=== PATIENT | female | born 1960 | race Caucasian/White ===

== ENCOUNTER 2020-03-07 02:41 | Emergency (ER) | payer BC ==
[~2020-03-07] VITALS: Ht 167.6 cm; Wt 81.7 kg
--- OUTSIDE RECORDS SUMMARY | ~2020-03-07 | XMS ---
Demographics + + + | Address | [address] | | | [place] [address] | + + + | Preferred Language | Unknown | + + + | Marital Status | Unknown | + + + | Judaism Affiliation | Unknown | + + + | Race | Unknown | + + + | Ethnic Group | Unknown | + + + Author + + + | Author | [facility] | + + + | Organization | [facility] | + + + | Address | [address] | | | [place] [address] | + + + | Phone | | + + + Care Team Providers + + + + | Care Principal Gifts Officer Name | Role | Phone | + + + + Unavailable | Unavailable | + + + + PROBLEMS +---------+ + + +--------+ + + | Type | Condition | ICD9-CM | ZOR67-EV | Onset | Condition | SNOMED | | | | Code | Code | Dates | Status | Code | +---------+ + + +--------+ + + | Problem | Herpes | 054.9 | | | Active | 50866567 | | | infection | | | | | | | | NOS | | | | | | +---------+ + + +--------+ + + | Problem | Shingles | 053.9 | | | Active | 9857522 | +---------+ + + +--------+ + + | Problem | Insomnia | 780.52 | | | Active | 435636180 | +---------+ + + +--------+ + + | Problem | Hypertensi | 401.9 | | | Active | 13844592 | | | on | | | | | | +---------+ + + +--------+ + + ALLERGIES Unknown Allergies SOCIAL HISTORY No smoking Hx information available PLAN OF CARE VITAL SIGNS MEDICATIONS Unknown Medications RESULTS No Results PROCEDURES No Known procedures IMMUNIZATIONS No Known Immunizations"
--- OUTSIDE RECORDS SUMMARY | ~2020-03-07 | XMS ---
Demographics + + + | Address | [address] | | | [place] [address] | + + + | Preferred Language | Unknown | + + + | Marital Status | Unknown | + + + | Roman Catholic Affiliation | Unknown | + + + | Race | Unknown | + + + | Ethnic Group | Unknown | + + + Author + + + | Author | [facility] | + + + | Organization | [facility] | + + + | Address | [address] | | | [place] [address] | + + + | Phone | | + + + Care Team Providers + + + + | Care Tower Truck Driver Name | Role | Phone | + + + + Unavailable | Unavailable | + + + + PROBLEMS +---------+ + + +--------+ + + | Type | Condition | ICD9-CM | [id number] | Onset | Condition | SNOMED | | | | Code | Code | Dates | Status | Code | +---------+ + + +--------+ + + | Problem | Herpes | 054.9 | | | Active | [id number] | | | infection | | | | | | | | NOS | | | | | | +---------+ + + +--------+ + + | Problem | Shingles | 053.9 | | | Active | 6955045 | +---------+ + + +--------+ + + | Problem | Insomnia | 780.52 | | | Active | 083990537 | +---------+ + + +--------+ + + | Problem | Hypertensi | 401.9 | | | Active | 62457267 | | | on | | | | | | +---------+ + + +--------+ + + ALLERGIES + + + + +--------+ | Substance | Reaction | Event Type | Date | Status | + + + + +--------+ | Penicillin | Unknown | Drug Allergy | May, | Active | + + + + +--------+ | PCN | Unknown | Non Drug | May, | Active | | | | Allergy | | | + + + + +--------+ SOCIAL HISTORY No smoking Hx information available PLAN OF CARE + +---------+ | Activity | Details | + +---------+ +---+ | | +---+ + + + | Follow Up | as scheduled with PCP Reason:null | + + + | Pending Test | Strep Gp A Rapid (IH) | + + + VITAL SIGNS + + + + | Height | 66 in | 2017-05-20 | + + + + | Weight | 180.6 lbs | 2017-05-20 | + + + + | BMI | 29.15 kg/m2 | 2017-05-20 | + + + + | Temperature | 98.8 degrees Fahrenheit | 2017-05-20 | + + + + | Heart Rate | 89 /min | 2017-05-20 | + + + + | Blood pressure systolic | 128 mm Hg | 2017-05-20 | + + + + | Blood pressure diastolic | 86 mm Hg | 2017-05-20 | + + + + MEDICATIONS + + + + + + + +--------+ | Medicati | Instruct | Dosage | Frequenc | Start | End Date | Duration | Status | | on | ions | | y | Date | | | | + + + + + + + +--------+ | Lunesta | Orally | 1 tablet | 24h | | | 90 | Active | | 3 MG | Once a | | | | | | | | | day | immediat | | | | | | | | | coco | | | | | | | | | before | | | | | | | | | bedtime | | | | | | + + + + + + + +--------+ | Acyclovi | Orally | 1 tablet | 12h | | | 10 | Active | | r 400 MG | BID | | | | | | | + + + + + + + +--------+ | Pseudoep | Orally | 1-2 | 6h | May, | | 15 | Active | | hedrine | every 6 | tablet | | 2016 | | day(s) | | | HCl 30 | hrs | as | | | | | | | mg | | needed | | | | | | + + + + + + + +--------+ | Imiprami | | | | | | | Active | | ne HCl | | | | | | | | | 10 MG | | | | | | | | + + + + + + + +--------+ | Ofloxaci | Ophthalm | 1 drop | 6h | May, | 16 Reinaldo, | 7 days | Active | | n 0.3 % | ic Four | into | | 2016 | 2016 | | | | | times a | affected | | | | | | | | day | eye | | | | | | + + + + + + + +--------+ | Cozaar | Orally | 1 tablet | 24h | | | 90 | Active | | 50 MG | Once a | | | | | | | | | day | | | | | | | + + + + + + + +--------+ RESULTS No Results PROCEDURES + + + + + | Procedure | Date Ordered | Related Diagnosis | Body Site | + + + + + | STREP A ASSAY | May 20, 2017 | | | | W/OPTIC | | | | + + + + + | Est Level III | May 20, 2017 | | | | Intermediate | | | | + + + + + IMMUNIZATIONS No Known Immunizations"
[~2020-03-07 02:41] MED LIST: ATENOLOL25 MG PO; BENADRYL A12.5 MG/5 PO; LOSARTAN POTASS50 MG; LUNESTA3 MG
--- OUTSIDE RECORDS SUMMARY | 2020-03-07 02:44 | XMS ---
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 [facility] VISIT COUNT (12 MO.) 1 STELLA Johnson TOTAL 1 NOTE: Visits indicate total known visits. ED/UCC VISIT TRACKING (12 MO.) 03/07/2020 02:42 STELLA Newman [place] TYPE: Emergency COMPLAINT: - CHEST PAIN,SOB INPATIENT VISIT TRACKING (12 MO.) No inpatient visits to display in this time frame [email or web address]
[2020-03-07] MEDS ORDERED: LOSARTAN POTASS25 MG PO (02:55)
[2020-03-07] MEDS ORDERED: ESZOPICLONE3 MG PO (02:55)
[2020-03-07] MEDS ORDERED: LEVOTHYROXINE50 MCG PO (02:57)
[2020-03-07] MEDS ORDERED: NORCO 5-325 TA1 EACH PO (04:18)
--- NOTE | 2020-03-07 20:45 | EKG ---
[facility] [address] [facility] [place] [address] Signed Normal sinus rhythm Possible Left atrial enlargement Borderline ECG No previous ECGs available Confirmed by MICHELLE KENNEY MD ([id number]) on 03/07/2020 8:45:06 PM Electronically Signed By: MICHELLE KENNEY MD 03/07/20 2045 PATIENT NAME: INÉS MAC Electrocardiogram DATE OF : 56 PHYSICIAN: MICHELLE KENNEY MD REPORT #: [id number] REPORT IS CONFIDENTIAL AND NOT TO BE RELEASED WITHOUT AUTHORIZATION
== END 2020-03-07 04:30 | disposition home or self-care (01) ==
LOC: ED 02:41
DX: R07.89 Other chest pain (principal); E03.9 Hypothyroidism, unspecified; F41.9 Anxiety disorder, unspecified; J45.909 Unspecified asthma, uncomplicated; Z87.891 Personal history of nicotine dependence; Z88.0 Allergy status to penicillin; Z79.899 Other long term (current) drug therapy
CPT/HCPCS: 71045; 80053; 83690; 83735; 84484; 85025; 85379; 93005; 93010; 99284-25

== ENCOUNTER 2023-09-06 08:05 | Day surgery (SDC) | payer OTHER ==
[~2023-09-06] VITALS: Ht 167.6 cm; Wt 82.7 kg
[~2023-09-06 08:05] MED LIST changes: +ACYCLOVIR400 MG PO; +ESZOPICLONE3 MG PO; +FLOVENT HFA10.6 GM INH; +LEVOTHYROXINE50 MCG PO; +LOSARTAN POTASS25 MG PO; +NORCO 5-325 TA1 EACH PO
[2023-09-06 08:32] VITALS: BP 136/73
--- NOTE | 2023-09-06 09:53 | NUR ---
09/06/23 0953 Gela Parra 0923- PT ARRIVES TO PACU, LEFT LATERAL POSITION. O2 IN PLACE AT 2L PER NC, LR INFUSING TO RH IV. PT REACTIVE TO STIMULIS, DENIES PAIN AND NAUSEA, KEEPS EYES CLOSED AND BACK TO RESTING. ABD ROUND, FIRM, ENCOURAGED TO PASS GAS. 0936- PT WAKES SELF, IS ASKING QUESTIONS. PLACED ON ROOM AIR. PT THEN BACK TO RESTING, PASSING GAS. WILL CONTINUE TO MONITOR. 0945- 1 LITER LR COMPLETE, NO FURTHER AT THIS TIME. PT CONTINUES TO REST INTERMITTENTLY. HASN'T CHANGED POSITIONS BUT OPENS EYES SOME TO ASK QUESTIONS.
[2023-09-06 10:42] VITALS: BP 107/67
--- NOTE | 2023-09-07 10:16 | OR ---
[facility] [address] [place], [place] [address] Signed DATE OF OPERATION: 09/06/2023 SURGEON: Ambar Rainey MD PREOPERATIVE DIAGNOSIS: Colon screening. POSTOPERATIVE DIAGNOSES: 1. Sigmoid diverticulosis. 2. Internal hemorrhoids. PROCEDURE: Total colonoscopy to cecum. ANESTHESIA: Intravenous sedation; fentanyl 200 mcg and Versed 8 mg. 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 She is a patient of GHADA Koch. She last underwent colonoscopy by me in 2010, which showed hemorrhoids and diverticulosis. She is symptom-free now and here for screening colonoscopy. She has no family history of colon cancer. She is admitted to undergo screening colonoscopy. She understands the risk of bleeding, infection, and perforation. FINDINGS: The prep was excellent. Complete colonoscopy was undertaken to the cecum with full intubation of the cecum. There was no evidence of polyps or colitis. She did have diverticulosis of the sigmoid and left colon. Internal hemorrhoids were identified as well. DESCRIPTION OF PROCEDURE: The patient was brought to the endoscopy suite and placed in the lateral decubitus position, given intravenous sedation to the point of slurred speech and nystagmus. Digital rectal examination was normal. An Olympus video colonoscope was passed in the rectum and manipulated throughout the colon noting diverticular change in the sigmoid and left colon. The scope was ultimately advanced to the cecum. The ileocecal valve and appendiceal orifice were normal. Scope was withdrawn from that point and examination throughout showed no sign Electronically Signed By: AMBAR RAINEY MD 09/07/23 [facility] PATIENT NAME: INÉS MATOS OPERATIVE REPORT DATE OF : 56 REPORT #: [id number] PHYSICIAN: AMBAR RAINEY MD PCP: CHRISTAL GRIJALVA REPORT IS CONFIDENTIAL AND NOT TO BE RELEASED WITHOUT AUTHORIZATION [facility] [address] [place], [place] [address] Signed of abnormality until the left colon where diverticulosis was once again seen. Retroflexed view of the rectum showed internal hemorrhoidal changes. Scope was removed and the patient was taken to the recovery room in good condition. CONCLUDING DIAGNOSES: Diverticulosis and internal hemorrhoids. PLAN: Recommend high-fiber diet and repeat colonoscopy in 10 years, sooner if clinically indicated. She will return to the ongoing care of GHADA Koch. MD SACHIN Hatfield/MARIANL /[id number] cc: GHADA Koch Copies: CHRISTAL GRIJALVA ~ Electronically Signed By: AMBAR RAINEY MD 09/07/23 1016 PATIENT NAME: INÉS MATOS OPERATIVE REPORT DATE OF : 56 REPORT #: [id number] PHYSICIAN: AMBAR RAINEY MD PCP: CHRISTAL GRIJALVA REPORT IS CONFIDENTIAL AND NOT TO BE RELEASED WITHOUT AUTHORIZATION
== END 2023-09-06 10:37 | disposition home or self-care (01) ==
LOC: OPS 08:05 → DS 08:05 → OPS 09:00 → DS 11:30
PROVIDERS: ATTEND Surgery
PROC: 0DJD8ZZ Inspection of Lower Intestinal Tract, Via Natural or Artificial Opening Endoscopic (ICD-10-PCS; principal; 2023-09-06 09:00)
DX: Z12.11 Encounter for screening for malignant neoplasm of colon (principal); K57.30 Diverticulosis of large intestine without perforation or abscess without bleeding; K64.8 Other hemorrhoids; Z87.891 Personal history of nicotine dependence
CPT/HCPCS: 99153; G0500; J2250; J3010; J7121

== ENCOUNTER 2023-12-27 13:51 | Emergency (ER) | payer MEDICARE ==
[~2023-12-27] VITALS: Ht 167.6 cm; Wt 88.4 kg
--- OUTSIDE RECORDS SUMMARY | 2023-12-27 13:56 | XMS ---
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 Gisela has no Care Guidelines for this patient. [place] VISIT COUNT (12 MO.) 1 STELLA Johnson TOTAL 1 NOTE: Visits indicate total known visits. ED/C VISIT TRACKING (12 MO.) 12/27/2023 13:55 STELLA Nweman [place] TYPE: Emergency COMPLAINT: - FALL, L HIP/SHOULDER INJURY INPATIENT VISIT TRACKING (12 MO.) No inpatient visits to display in this time frame [id number]
[2023-12-27 15:25] VITALS: BP 129/78
== END 2023-12-27 15:26 | disposition home or self-care (01) ==
LOC: ED 13:51
DX: S70.02XA Contusion of left hip, initial encounter (principal); S40.012A Contusion of left shoulder, initial encounter; S80.811A Abrasion, right lower leg, initial encounter; S50.311A Abrasion of right elbow, initial encounter; I48.92 Unspecified atrial flutter; E03.9 Hypothyroidism, unspecified; J45.909 Unspecified asthma, uncomplicated; Z87.891 Personal history of nicotine dependence; Z79.899 Other long term (current) drug therapy; Z88.0 Allergy status to penicillin; W10.9XXA Fall (on) (from) unspecified stairs and steps, initial encounter; Y92.009 Unspecified place in unspecified non-institutional (private) residence as the place of occurrence of the external cause; Y93.89 Activity, other specified
CPT/HCPCS: 73030; 73502; 99283-25